=== PATIENT | female | born 1950 | race Caucasian/White ===

== ENCOUNTER 2017-04-07 09:11 | Day surgery (SDC) | payer MEDICARE, BC ==
--- NOTE | 2017-04-07 06:32 | History and Physical Report ---
DATE: 04/06/2017. CHIEF COMPLAINT AND HISTORY OF CHIEF COMPLAINT: This is a patient with a postlaminectomy radiculitis. She has an implanted spinal opioid infusion system currently infusing hydromorphone. Over the last number of refills and evaluations, battery depletion was noted. She is here for routine battery replacement without parameter changes. PAST MEDICAL HISTORY: Hypertension, gastrointestinal disease. PAST SURGICAL HISTORY: Lumbar spinal surgery, bowel resection, hysterectomy, section, knee surgery, pump implant. EMPLOYMENT STATUS: Retired. MEDICATIONS ON ADMISSION: To be provided. ALLERGIES: Penicillin, Demerol, erythromycin. REVIEW OF SYSTEMS: The patient seems appropriate and in no acute distress. The remainder of the systems review shows glasses, hypertension, urologic disease with nephrolithiasis, degenerative arthritis, fibromyalgia, depression, difficulty sleeping. SOCIAL HISTORY: Noncontributory. FAMILY HISTORY: Diabetes, coronary artery disease, hypertension, cancer. PHYSICAL EXAMINATION: General: Height is 5 feet, 4 inches. Weight is 140 pounds. Vital Signs: Not available. HEENT: Within normal limits. Lungs: Clear. Heart: Regular rate and rhythm. Abdomen: Nontender. Musculoskeletal: Examination of the musculoskeletal system shows diffuse tenderness throughout the lumbar spine. Range of motion does produce pain throughout the low back and hip area. The pump pouch is intact. The catheter placement site is intact. Neurologic: Cranial nerves are intact. IMPRESSION: 1. POSTLUMBAR LAMINECTOMY SYNDROME, ICD-10 CODE M96.1. 2. LUMBAR RADICULITIS, ICD-10 CODE M54.16 AND M54.17. 3. IMPLANTED SPINAL OPIOID INFUSION SYSTEM WITH HYDROMORPHONE. PLAN: This patient is here for routine pump battery change on an outpatient basis. The infusion characteristics will not be changed. The potential risks, side effects, and complications have all been carefully reviewed and discussed. JOB NUMBER: [id number] cc: Michael Gonzalez
[~2017-04-07 09:11] MED LIST: ACETAMINOPHEN 1,000 MG/100 ML BTL IV ONE; CEFAZOLIN 2 Gram 2 GM/50 ML BAG IVPB ONE; FAMOTIDINE 20MG TABLET PO ONE; HYDROMORPHONE HCL 0.6 GM in 0.9 % SODIUM CHLORIDE 10ML VIA 20 ML IV ONE; HYDROMORPHONE HCL/PF 0.002 MG in 0.9 % SODIUM CHLORIDE 10ML VIA 0.998 ML IVP ONE; MECLIZINE 25 MG TABLET PO ONE; METOCLOPRAMIDE 10 MG TABLET PO ONE
[2017-04-07] MEDS ORDERED: MIDAZOLAM HCL 2MG/2ML VIAL IV ONE (09:12)
[2017-04-07] MEDS ORDERED: CEFAZOLIN 1G VIAL IM ONE (09:12)
[2017-04-07] MEDS ORDERED: LIDOCAINE 2% MDV (20MG/ML) 20ML VIAL IV ONE (09:12)
[2017-04-07] MEDS ORDERED: OXYCODONE/APAP 10MG-325MG TABLET PO ONE (09:12)
[2017-04-07] MEDS ORDERED: ONDANSETRON HCL IV 4 MG/2 ML VIAL IVP ONE (09:12)
[2017-04-07] MEDS ORDERED: DEXAMETHASONE 4 MG/ML 1ML VIAL IVP ONE (09:12)
[2017-04-07] MEDS ORDERED: PROPOFOL 10 MG/ML VIAL IV ONE (09:12)
[2017-04-07] MEDS ORDERED: BUPIVACAINE 0.75% W/EPI MPF 30ML VIAL IVP ONE (09:12)
[2017-04-07] MEDS ORDERED: LIDOCAINE 1% W/EPI 1:200,000 MPF 30ML SQ ONE (09:12)
--- NOTE | 2017-04-08 05:01 | Operative Note - [facility] ---
DATE OF SURGERY: 04/07/2017. PREOPERATIVE DIAGNOSES: 1. POSTLUMBAR LAMINECTOMY SYNDROME, ICD-10 CODE M96.1. 2. LUMBAR RADICULITIS, ICD-10 CODE M54.16 AND M54.17. 3. IMPLANTED SPINAL OPIOID INFUSION SYSTEM WITH HYDROMORPHONE WITH BATTERY DEPLETION. POSTOPERATIVE DIAGNOSES: 1. POSTLUMBAR LAMINECTOMY SYNDROME, ICD-10 CODE M96.1. 2. LUMBAR RADICULITIS, ICD-10 CODE M54.16 AND M54.17. 3. IMPLANTED SPINAL OPIOID INFUSION SYSTEM WITH HYDROMORPHONE WITH BATTERY DEPLETION. OPERATION: 1. Incision, subcutaneous dissection, and removal and replacement of internal subcutaneously placed programmable pump infusing hydromorphone. 2. Diagnostic myelography with radiologic supervision and interpretation to evaluate pump catheter integrity. SURGEON: Demetrius Ferreira D.O. ANESTHESIA: Local sedation. ANESTHESIA PROVIDER: Tamia Guallpa CRNA. INDICATION: This patient presents with a history of intractable lumbar radiculitis and postlaminectomy syndrome. A programmable pump infusing hydromorphone has been identified with battery depletion. She is here for battery replacement. PROCEDURE: Intravenous line, vital sign monitoring, and intravenous sedation. The patient was positioned prone. Prepped and draped with sterile technique. Under imaging the programmable pump pouch at the right posterior gluteal margin was identified. The incisional site for the previously placed pump was infiltrated. An incision was made and subcutaneous dissection was conducted to the Dacron sleeve. The Dacron sleeve was opened and the pump was exteriorized. The indwelling pump was from the catheter. A new pump prefilled with hydromorphone 30 mg per mL was placed onto the field. This pump was then interfaced with the indwelling catheter. A 24-gauge Espinosa needle was inserted through an access port and 1.0 mL of catheter contents was aspirated, clearing the catheter of opioid and cerebrospinal mixture. The pump was then placed into the pouch and secured to the fascia with nonabsorbable suture. Using a Espinosa needle, contrast was injected through the access port under imaging with radiologic supervision and interpretation. The myelogram demonstrated catheter position at T11-12 with appropriate flow characteristics. With the catheter pump characteristics identified and confirmed, with the pump in the pouch, the incision was closed with Vicryl for the fascia and running subcuticular Vicryl for the skin. Dermabond closure was placed approximating the edges of the wound. She was then transported to the recovery room with the pump programmed to deliver by continuous infusion a baseline infusion of 5.084 mg per day. The Dermabond closure had been firmly secured to approximate the edges of the wound. She was showing no side effects from the procedure or the sedation. DISCHARGE INSTRUCTIONS: 1. The site is to remain clean and dry; although the Dermabond will allow showering within the next 24 hours. 2. Standard medications to be resumed including Levaquin the antibiotic 500 mg once a day for 14 days. 3. She will be seen in the office in seven to ten days at which point we will evaluate the site's integrity and incision. At that point she will be cleared for other activities. 4. All other instructions were provided. Numbers to contact with problems were given. 5. Any problems with the antibiotic should be directed back to the office for substitution. JOB NUMBER: [id number] cc: Michael Gonzalez
== END 2017-04-07 12:10 | disposition home or self-care (01) ==
LOC: SUR 09:11
PROVIDERS: ATTEND Pain Medicine Interventional Pain Medicine
DX: T85.890A Other specified complication of nervous system prosthetic devices, implants and grafts, initial encounter (principal); M96.1 Postlaminectomy syndrome, not elsewhere classified; M54.16 Radiculopathy, lumbar region; M54.17 Radiculopathy, lumbosacral region; M06.9 Rheumatoid arthritis, unspecified
CPT/HCPCS: 62362; 62368; 00300; Q9967; J2405; J1170; J0690; J3490